=== PATIENT | male | born 1970 | race Caucasian/White ===

== ENCOUNTER → 2023-07-15 07:17 | Day surgery (SDC) | payer BC, SELFPAY | LOC: GI 07:17 | PROVIDERS: ATTENDING PHYSICIAN Internal Medicine Gastroenterology | DX: D12.4 Benign neoplasm of descending colon (principal); K63.5 Polyp of colon; K57.30 Diverticulosis of large intestine without perforation or abscess without bleeding; D12.8 Benign neoplasm of rectum; K62.1 Rectal polyp; R19.7 Diarrhea, unspecified; K62.5 Hemorrhage of anus and rectum | CPT/HCPCS: 45385; 45380; 88305 ==

== ENCOUNTER 2024-05-26 12:29 | Emergency (ER) | payer BC, SELFPAY ==
[2024-05-26 12:34] VITALS: BP 163/76
[2024-05-26 12:58] LABS: % Basophils 0.9 % (0-2); % Eosinophils 3.1 % (0-6); % Immature Granulocytes 0.3 % (0-0.5); % Lymphocytes 33.2 % (20.5-51.1); % Monocytes 8.5 % (1.7-9.3); Absolute Basophils 0.1 10^3/uL (0-0.2); Absolute Eosinophils 0.3 10^3/uL (0-0.7); Absolute Lymphocytes 3.2 10^3/uL (1.2-3.4); Absolute Monocytes 0.8 10^3/uL (0.1-0.6); Absolute Neutrophils 5.2 10^3/uL (1.4-6.5); Hematocrit 43.6 % (39.0-52.0); Hemoglobin 15.4 g/dL (13.0-18.0); Mean Corp Hgb Conc. 35.3 g/dL (33.0-37.0); Mean Corpuscular Volume 93.6 fL (80.0-94.0); Mean Platelet Volume 9.4 fL (7.4-10.4); Nucleated Red Blood Cells % 0 % (-); Platelet Count 299 10^3/uL (130-400); Red Blood Cell Count 4.66 10^6/uL (4.70-6.10); Red Cell Dist. Width 12.2 % (11.5-14.5); White Blood Cell Count 9.7 10^3/uL (4.8-10.8)
[2024-05-26 12:58] LABS: Urine Albumin Negative (Neg - Trace); Urine Bilirubin Negative (Negative); Urine Character Clear (Clear); Urine Color Yellow; Urine Glucose Negative (Negative); Urine Ketone Trace (Negative); Urine Leukocyte Trace (Negative); Urine Nitrite Negative (Negative); Urine Occult Blood 1+ (Negative); Urine Urobilinogen Negative (Neg - 1+)
[2024-05-26 13:17] LABS: ALT (SGPT) 18 U/L (0-50); AST (SGOT) 22 U/L (17-59); Albumin 4.6 g/dl (3.5-5.0); Alkaline Phosphatase 50 U/L (38-126); Blood Urea Nitrogen 10 mg/dl (9-20); Calcium 9.5 mg/dl (8.4-10.2); Carbon Dioxide 23 mmol/L (22-30); Chloride 104 mmol/L (98-107); Glucose 155 mg/dl (70-99); Potassium 4.1 mmol/L (3.5-5.1); Sodium 137 mmol/L (135-145); Total Bilirubin 0.5 mg/dl (0.2-1.3); Total Protein 6.8 g/dl (6.3-8.2); eGFR > 60.00
[2024-05-26 14:12] LABS: Urine Mucus Many
[2024-05-26 14:13] LABS: Urine Amorphous Seen; Urine Red Blood Cell 21-25 /HPF (0-2)
[2024-05-26 14:15] LABS: Urine Bacteria Few (Negative); Urine Urothelial Cell 0-2 /LPF (FEW)
--- NOTE | 2024-05-26 14:29 | ED.GENMED ---
History of Present Illness
General
Chief Complaint: Abdominal Pain
Time Seen by Provider: 05/26/24 14:16
History of Present Illness
History of Present Illness:
53-year-old male presents to the emergency department for evaluation of flank/lower abdominal pain that began last night associated with hematuria this morning. States that the pain began suddenly last night radiating between the right lower
quadrant to the right flank and the right testicle. He was able to go to sleep and upon waking up this morning his pain was resolved. He notes that his urine appeared thick with sediment at this morning as well as gross hematuria. Denies any
dysuria. No gross hematuria on urine specimen collected for testing here in the ER. No prior abdominal surgeries. Denies fevers or chills.
Review of Systems
Review of Systems
Allergies reviewed?: Yes
All Other Systems: ROS reviewed and negative except as documented in HPI and ROS
Phy Exam
Physical Exam
Physical Exam:
GEN: Well appearing, NAD, WDWN
HEENT: Oral mucosa moist, no scleral icterus
Cardiac: Regular rate
Lung: No respiratory distress, no tachypnea
Abdomen: Soft, grossly nontender to all 4 quadrants, no CVA tenderness bilaterally
MSK: No gross deformity or injuries
Skin: Good color, no pallor or jaundice, no rashes
Neuro: AO x3, moves all extremities freely
Psych: Calm, cooperative
Course
Orders/Labs/Results
Orders:
Orders
05/26/24 12:42
CMP [Comprehensive Metabolic Panel] Urgent
Complete Blood Count/With Diff Urgent
05/26/24 12:46
Urinalysis Reflex To Culture Urgent
Date Specimen was Collected: 05/26/24
Time Specimen was Collected: 12:39
Urine Microscopic Reflex Cult Urgent
Abnormal Lab Results
05/26/24 05/26/24
12:42 12:46
RBC 4.66 L 10^6/uL
(4.70-6.10)
MCH 33.0 H pg
(27.0-31.0)
Absolute Monos (auto) 0.8 H 10^3/uL
(0.1-0.6)
Glucose 155 H mg/dl
(70-99)
Urine Ketones Trace A
(Negative)
Ur Occult Blood Reflex 1+ A
(Negative)
Leukocyte Esterase Rfl Trace A
(Negative)
Urine RBC 21-25 A /HPF
(0-2)
Urine Bacteria (Reflex) Few A
(Negative)
05/26/24 12:42
05/26/24 12:42
Vital Signs
Initial and Last Documented VS:
Initial Vital Signs
Temp Pulse Resp BP Pulse Ox
98.0 F 109 16 163/76 96
05/26/24 12:34 05/26/24 12:34 05/26/24 12:34 05/26/24 12:34 05/26/24 12:34
Last Documented Vital Signs
Temp Pulse Resp BP Pulse Ox
98.0 F 109 16 163/76 96
05/26/24 12:34 05/26/24 12:34 05/26/24 12:34 05/26/24 12:34 05/26/24 12:34
MDM/Problems Addressed
MDM/Problems Addressed:
Suspect the patient passed a kidney stone overnight evidenced by hematuria and right flank pain that is since resolved. He currently has a benign abdominal exam and reassuring labs, do not see any indication for abdominal imaging at this time.
Will treat empirically for UTI given the pyuria
*Critical Care Note
Total Time (30-74mins, 75-104mins- exclusive of procedures): Not Applicable
ED Attending Note
-
Portions of this chart may have been created with voice recognition software.� Occasional wrong word or��sound alike� substitutions may have occurred due to the inherent limitations of voice recognition software.
Discharge Plan
Departure
Patient Disposition: Home (Routine Discharge)
Date of Disposition: 05/26/24
Time of Disposition: 14:31
Patient with high blood pressure during this ER visit?: No
Discharge Problem:
Kidney stone
Instructions: Kidney Stones (DC)
Prescriptions:
New
cephalexin 500 mg capsule
500 mg PO Q8H 5 Days Qty: 15 0RF
Interventions
Interventions:
*Risk Screen - Suicide Last Done: 05/26/24 12:38
*Neglect/Abuse Screening Last Done: 05/26/24 12:38
*Nursing Disposition Last Done: 05/26/24 14:44
Discharge Date and Time
Discharge Date/Time: 05/26/24 14:45
Print Language: PASHTO
== END 2024-05-26 14:45 | disposition home or self-care (01) ==
LOC: EMR 12:29
PROVIDERS: Emergency Medicine; EMERGENCY PHYSICIAN Emergency Medicine
DX: N20.0 Calculus of kidney (principal)
CPT/HCPCS: 99283; 80053; 81003; 81015; 85025